=== PATIENT | male | born 1975 | race African-American/Black ===

== ENCOUNTER 2023-06-20 14:12 | Emergency (ER) | payer BC ==
[~2023-06-20] VITALS: Ht 190.5 cm; Wt 75.1 kg
[2023-06-20 14:26] VITALS: BP 131/83; PULSE 89; RESP 18; TEMP 98; O2SAT 100
[2023-06-20 15:22] LABS: BASOPHILS % (AUTO) 0.9 % (0-1); EOSINOPHILS % (AUTO) 1.2 % (0-6); HEMOGLOBIN 14.5 g/dl (14.0-17.9); LYMPHOCYTES # (AUTO) 1.7 X10'3 (1.1-4.8); LYMPHOCYTES % (AUTO) 39.7 % (21-51); MEAN CORPUSCULAR HEMOGLOBIN 30.5 PG (27.0-31.0); MEAN CORPUSCULAR HGB CONC 33.7 g/dL (33.0-36.5); MEAN CORPUSCULAR VOLUME 90.3 FL (78-98); MEAN PLATELET VOLUME 7.5 FL (7.4-10.4); MONOCYTES # (AUTO) 0.5 X10'3 (0-0.9); MONOCYTES % (AUTO) 11.2 % (2-12); PLATELET COUNT 348 X10'3 (140-440); RED BLOOD COUNT 4.76 X10'6 (4.70-6.10); RED CELL DISTRIBUTION WIDTH 12.7 % (11.5-14.5); WHITE BLOOD COUNT 4.2 X10'3 (4.5-11.0)
[2023-06-20 15:37] LABS: ALANINE AMINOTRANSFERASE 16 U/L (12-78); ALBUMIN 3.5 G/DL (3.4-5.0); ALBUMIN/GLOBULIN RATIO 1.1 (1.1-1.5); ALKALINE PHOSPHATASE 51 IU/L (46-116); AMYLASE 65 U/L (25-115); ANION GAP 7 (8-16); ASPARTATE AMINO TRANSFERASE 6 U/L (10-37); BILIRUBIN,TOTAL 0.5 MG/DL (0.1-1.0); BLOOD UREA NITROGEN 11 MG/DL (7-18); BUN/CREATININE RATIO 10.6 (10.0-20.0); CHLORIDE 99 MMOL/L (99-107); CREATININE 1.04 MG/DL (0.60-1.10); LIPASE 69 U/L (16-77); POTASSIUM 3.8 MMOL/L (3.5-5.1); SODIUM 135 MMOL/L (135-145); TOTAL CARBON DIOXIDE 29.4 MMOL/L (24-32); TOTAL PROTEIN 6.6 G/DL (6.4-8.2); eCRCL 93 ML/MIN; eGFR 77 ML/MIN
[2023-06-20 15:49] LABS: GLUCOSE 436 MG/DL (70-104)
[2023-06-20] MEDS ORDERED: normal saline 1000ml 1,000 ML IV ONE (16:05)
[2023-06-20] MEDS ORDERED: ONDA4TAB12 PO (16:39)
== END 2023-06-20 17:05 | disposition home or self-care (01) ==
LOC: ER 14:12
DX: A08.4 Viral intestinal infection, unspecified (principal)
CPT/HCPCS: 36415; 80053; 82150; 83690; 85025; 96360; 99283; J7030

== ENCOUNTER 2023-10-25 16:44 | Emergency (ER) | payer BC ==
[~2023-10-25] VITALS: Ht 190.5 cm; Wt 67.2 kg
[~2023-10-25 16:44] MED LIST: ONDA4TAB12 PO
[2023-10-25 17:26] LABS: BASOPHILS # (AUTO) 0.1 X10'3 (0-0.2); EOSINOPHILS % (AUTO) 0.1 % (0-6); HEMOGLOBIN 14.1 g/dl (14.0-17.9); LYMPHOCYTES # (AUTO) 0.6 X10'3 (1.1-4.8); LYMPHOCYTES % (AUTO) 4.2 % (21-51); MEAN CORPUSCULAR HEMOGLOBIN 29.2 PG (27.0-31.0); MEAN CORPUSCULAR HGB CONC 32.9 g/dL (33.0-36.5); MEAN CORPUSCULAR VOLUME 88.8 FL (78-98); MEAN PLATELET VOLUME 7.8 FL (7.4-10.4); MONOCYTES # (AUTO) 0.7 X10'3 (0-0.9); MONOCYTES % (AUTO) 5.2 % (2-12); NEUTROPHILS # (AUTO) 12.6 X10'3 (1.8-7.7); NEUTROPHILS % (AUTO) 89.5 % (42-75); PLATELET COUNT 446 X10'3 (140-440); RED BLOOD COUNT 4.84 X10'6 (4.70-6.10); RED CELL DISTRIBUTION WIDTH 13.1 % (11.5-14.5); WHITE BLOOD COUNT 14.1 X10'3 (4.5-11.0)
[2023-10-25 17:40] LABS: SALICYLATE 1.8 MG/DL (4.0-20.0)
[2023-10-25 17:49] LABS: ACETAMINOPHEN < 2.0 UG/ML (10-30); ETHANOL < 10 MG/DL (<10)
[2023-10-25 17:55] LABS: ACETONE NEGATIVE (NEGATIVE)
[2023-10-25 18:16] LABS: URINE AMPHETAMINE SCREEN POSITIVE (Neg); URINE BARBITUATE SCREEN NEGATIVE (Neg); URINE BENZODIAZEPINES SCREEN NEGATIVE (Neg); URINE CANNABINOID SCREEN POSITIVE (Neg); URINE COCAINE SCREEN POSITIVE (Neg); URINE METHADONE SCREEN NEGATIVE (Neg); URINE OPIATE SCREEN NEGATIVE (Neg); URINE PHENCYCLIDINE SCREEN NEGATIVE (Neg)
[2023-10-25 18:17] LABS: BILIRUBIN,URINE NEGATIVE (Neg); CLARITY,URINE CLEAR (Clear); COLOR,URINE YELLOW (Yellow); GLUCOSE, URINE >=1000 mg/dl (Neg); KETONES,URINE 15 mg/dl (Neg); LEUKOCYTE ESTERASE ,URINE NEGATIVE (Neg); NITRITES, URINE NEGATIVE (Neg); OCCULT BLOOD,URINE MODERATE (Neg); PH,URINE 6.5 (4.8-8.0); PROTEIN,URINE NEGATIVE (Neg)
[2023-10-25 18:18] LABS: UA COLLECTION TYPE VOIDED
[2023-10-25 18:27] LABS: BACTERIA,URINE NONE SEEN /HPF (Neg); RBC,URINE 20-50 /HPF (0-2); SQUAMOUS EPITHELIAL CELL,UR NONE SEEN /LPF (FEW)
[2023-10-25 18:28] LABS: HYALINE CASTS 0-3 /LPF (NEGATIVE); SPERM FEW /HPF (NEGATIVE); WBC,URINE 0-4 /HPF (0-4)
[2023-10-25 18:52] LABS: ALANINE AMINOTRANSFERASE 44 U/L (12-78); ALBUMIN 3.3 G/DL (3.4-5.0); ALBUMIN/GLOBULIN RATIO 0.8 (1.1-1.5); ALKALINE PHOSPHATASE 77 IU/L (46-116); ANION GAP 12 (8-16); ASPARTATE AMINO TRANSFERASE 29 U/L (10-37); BILIRUBIN,TOTAL 1.1 MG/DL (0.1-1.0); BLOOD UREA NITROGEN 13 MG/DL (7-18); BUN/CREATININE RATIO 10.7 (10.0-20.0); CALCIUM 8.9 MG/DL (8.5-10.1); CHLORIDE 97 MMOL/L (99-107); CREATININE 1.22 MG/DL (0.60-1.10); POTASSIUM 4.5 MMOL/L (3.5-5.1); SODIUM 135 MMOL/L (135-145); TOTAL CARBON DIOXIDE 26.2 MMOL/L (24-32); TOTAL PROTEIN 7.7 G/DL (6.4-8.2); eCRCL 71 ML/MIN; eGFR 77 ML/MIN
[2023-10-25 18:55] LABS: GLUCOSE 470 MG/DL (70-104)
[2023-10-25] MEDS: normal saline 1000ML IV soln IVB ONE ×2 (19:15→19:50)
[2023-10-25] MEDS: insulin regular, human 10 units/0.1 ml syringe IV ONE (19:18)
[2023-10-25] MEDS: insulin Lispro (HumaLOG) vial - multi-dose SQ SCH (19:50)
[2023-10-25] MEDS: LORazepam 1 MG tablet PO ONE (21:23)
[2023-10-25] MEDS: LORazepam 2 mg/ml vial IM ONE (21:26)
[2023-10-25] MEDS: haloperidol lactate 5mg/ml inj IM ONE (21:27)
[2023-10-25] MEDS: diphenhydrAMINE 50 mg/ml inj IM ONE (21:27)
[2023-10-25] MEDS ORDERED: NO HOME MEDS (22:10)
[2023-10-26] MEDS: normal saline 1000ml 1,000 ML IV ONE (08:55)
[2023-10-26] MEDS ORDERED: METF-437 PO (16:05)
[2023-10-26 18:19] VITALS: BP 121/68; PULSE 78; RESP 17; TEMP 98.9; O2SAT 98
[2023-10-27] MEDS ORDERED: metFORMIN 500mg tablet PO SCH (08:00)
== END 2023-10-26 17:10 | disposition home or self-care (01) ==
LOC: ER 16:44
DX: F39 Unspecified mood [affective] disorder (principal); Z20.822 Contact with and (suspected) exposure to COVID-19; F15.10 Other stimulant abuse, uncomplicated; R45.851 Suicidal ideations; E11.9 Type 2 diabetes mellitus without complications; F12.90 Cannabis use, unspecified, uncomplicated
CPT/HCPCS: 36415; 71045; 80053; 80305; 80320; 80329; 81001; 82009; 82948; 83605; 85025; 87040; 87811; 96361; 96372; 96374; 99285; J1200; J1630; J1815; J2060; J7030

== ENCOUNTER 2024-04-15 06:56 | Emergency (ER) | payer BC, MEDICAID ==
[~2024-04-15] VITALS: Ht 190.5 cm; Wt 81.4 kg
[~2024-04-15 06:56] MED LIST changes: +METF-437 PO; +NO HOME MEDS; -ONDA4TAB12 PO
[2024-04-15 06:58] VITALS: BP 144/98; PULSE 103; RESP 16; TEMP 98; O2SAT 100
== END 2024-04-15 08:05 | disposition home or self-care (01) ==
LOC: ER 06:56
DX: E11.65 Type 2 diabetes mellitus with hyperglycemia (principal); F12.90 Cannabis use, unspecified, uncomplicated; Z79.84 Long term (current) use of oral hypoglycemic drugs
CPT/HCPCS: 82948; 99282

== ENCOUNTER 2024-11-30 06:18 | Emergency (ER) | payer BC, MEDICAID ==
[~2024-11-30] VITALS: Ht 190.5 cm; Wt 45.9 kg
[2024-11-30 06:19] VITALS: BP 138/94; PULSE 112; RESP 15; TEMP 97.8; O2SAT 98
== END 2024-11-30 08:54 | disposition left against medical advice (07) ==
LOC: ER 06:18
DX: T88.7XXA Unspecified adverse effect of drug or medicament, initial encounter (principal); T50.995A Adverse effect of other drugs, medicaments and biological substances, initial encounter; Y92.89 Other specified places as the place of occurrence of the external cause; Z53.21 Procedure and treatment not carried out due to patient leaving prior to being seen by health care provider

== ENCOUNTER 2024-12-07 10:35 | Emergency (ER) | payer MEDICAID ==
[~2024-12-07] VITALS: Ht 190.5 cm; Wt 52.4 kg
[2024-12-07 12:38] VITALS: BP 110/78; PULSE 70; RESP 16; TEMP 98.1; O2SAT 99
== END 2024-12-07 12:39 | disposition home or self-care (01) ==
LOC: ER 10:36
DX: Z02.9 Encounter for administrative examinations, unspecified (principal); F17.210 Nicotine dependence, cigarettes, uncomplicated; E11.9 Type 2 diabetes mellitus without complications; F12.90 Cannabis use, unspecified, uncomplicated; Z59.00 Homelessness unspecified; Z56.0 Unemployment, unspecified
CPT/HCPCS: 99281

== ENCOUNTER 2024-12-11 00:17 | Emergency (ER) | payer MEDICAID ==
[~2024-12-11] VITALS: Ht 190.5 cm; Wt 72.0 kg
[2024-12-11] MEDS ORDERED: EMPA25TA PO (00:49)
[2024-12-11] MEDS ORDERED: DULA3PEN (00:49)
[2024-12-11] MEDS ORDERED: ONDA-243 (00:49)
[2024-12-11] MEDS ORDERED: BLOO-1948 (00:49)
[2024-12-11] MEDS ORDERED: DULO60CA65 PO (00:49)
[2024-12-11] MEDS ORDERED: GABA-1405 PO (00:49)
[2024-12-11 01:10] VITALS: TEMP 97.2
[2024-12-11 01:26] LABS: BASOPHILS # (AUTO) 0.1 X10'3 (0-0.2); EOSINOPHILS % (AUTO) 0.1 % (0-6); HEMATOCRIT 45.7 % (42.0-52.0); HEMOGLOBIN 15.6 g/dl (14.0-17.9); LYMPHOCYTES # (AUTO) 1.2 X10'3 (1.1-4.8); LYMPHOCYTES % (AUTO) 16.5 % (21-51); MEAN CORPUSCULAR HEMOGLOBIN 30.1 PG (27.0-31.0); MEAN CORPUSCULAR HGB CONC 34.2 g/dL (33.0-36.5); MEAN CORPUSCULAR VOLUME 87.9 FL (78-98); MEAN PLATELET VOLUME 7.4 FL (7.4-10.4); MONOCYTES # (AUTO) 0.2 X10'3 (0-0.9); NEUTROPHILS # (AUTO) 5.6 X10'3 (1.8-7.7); NEUTROPHILS % (AUTO) 79.4 % (42-75); PLATELET COUNT 536 X10'3 (140-440)
[2024-12-11 01:29] LABS: ALBUMIN 3.9 G/DL (3.4-5.0); ANION GAP 15 (8-16); BLOOD UREA NITROGEN 16 MG/DL (7-18); BUN/CREATININE RATIO 17.6 (10.0-20.0); CALCIUM 9.7 MG/DL (8.5-10.1); CHLORIDE 98 MMOL/L (99-107); CREATININE 0.91 MG/DL (0.60-1.10); GLUCOSE 182 MG/DL (70-104); LIPASE 18 U/L (16-77); POTASSIUM 4.4 MMOL/L (3.5-5.1); SODIUM 139 MMOL/L (135-145); TOTAL CARBON DIOXIDE 26.1 MMOL/L (24-32); eCRCL 100 ML/MIN; eGFR > 90 ML/MIN
[2024-12-11] MEDS: normal saline 1000ML IV soln IVB ONE (01:45)
[2024-12-11] MEDS: proCHLORperazine 10 MG/2 ml inj IV ONE (01:46)
[2024-12-11] MEDS: pantoprazole 40 MG vial IV ONE (01:47)
[2024-12-11] MEDS ORDERED: PANT-47 PO (03:40)
[2024-12-11 04:06] VITALS: BP 111/76; PULSE 110; RESP 18; O2SAT 99
[2024-12-13] MEDS ORDERED: METO5TAB98 PO (14:52)
== END 2024-12-11 04:19 | disposition home or self-care (01) ==
LOC: ER 00:18
DX: R11.2 Nausea with vomiting, unspecified (principal); R10.13 Epigastric pain; E11.9 Type 2 diabetes mellitus without complications; F41.9 Anxiety disorder, unspecified; F32.A Depression, unspecified; F12.90 Cannabis use, unspecified, uncomplicated; F17.200 Nicotine dependence, unspecified, uncomplicated; F15.90 Other stimulant use, unspecified, uncomplicated
CPT/HCPCS: 36415; 71045; 80048; 83690; 85025; 96361; 96374; 96375; 99284; J0780; J2470; J7030